=== PATIENT | male | born 1955 | race Caucasian/White ===

== ENCOUNTER 2018-11-15 07:02 | Emergency (ER) | payer MEDICARE, OTHER ==
[~2018-11-15] VITALS: Ht 167.6 cm; Wt 85.3 kg
[~2018-11-15 07:02] MED LIST: BENZ1TAB7 PO; CITA-278 PO; CLON-527 PO; COR3.125T PO; DIVA-81 PO; FURO40TA4 PO; GABA-338 PO; HAL5T PO; HYDR-3965 PO; POTA10TA19 PO; QUET-1 PO; TRAZ50TA54 PO; ZES10T PO
[2018-11-15] MEDS ORDERED: LORazepam 1 MG tablet PO ONE (08:00)
[2018-11-15 08:13] LABS: CLARITY,URINE CLEAR (Clear); COLOR,URINE YELLOW (Yellow); GLUCOSE, URINE NEGATIVE (Neg); KETONES,URINE NEGATIVE (Neg); LEUKOCYTE ESTERASE ,URINE NEGATIVE (Neg); NITRITES, URINE NEGATIVE (Neg); OCCULT BLOOD,URINE NEGATIVE (Neg); PH,URINE 7.5 (4.8-8.0); PROTEIN,URINE NEGATIVE (Neg); UROBILINOGEN,URINE 0.2 E.U/dL (0.2-1.0)
[2018-11-15 08:15] LABS: BASOPHILS % (AUTO) 0.2 % (0-1); EOSINOPHILS # (AUTO) 0.1 X10'3 (0-0.9); EOSINOPHILS % (AUTO) 1.3 % (0-6); HEMATOCRIT 34.8 % (42.0-52.0); HEMOGLOBIN 11.5 g/dl (14.0-17.9); LYMPHOCYTES # (AUTO) 1.5 X10'3 (1.1-4.8); LYMPHOCYTES % (AUTO) 31.6 % (21-51); MEAN CORPUSCULAR HEMOGLOBIN 29.9 PG (27.0-31.0); MEAN CORPUSCULAR HGB CONC 33.1 % (33.0-36.5); MEAN CORPUSCULAR VOLUME 90.4 FL (78-98); MEAN PLATELET VOLUME 8.8 FL (7.4-10.4); MONOCYTES # (AUTO) 0.3 X10'3 (0-0.9); MONOCYTES % (AUTO) 6.9 % (2-12); NEUTROPHILS # (AUTO) 2.8 X10'3 (1.8-7.7); PLATELET COUNT 217 X10'3 (140-440); RED BLOOD COUNT 3.84 X10'6 (4.70-6.10); RED CELL DISTRIBUTION WIDTH 14.9 % (11.5-14.5); WHITE BLOOD COUNT 4.7 X10'3 (4.5-11.0)
[2018-11-15 08:27] LABS: ALANINE AMINOTRANSFERASE 17 U/L (12-78); ALBUMIN 3.7 G/DL (3.4-5.0); ALKALINE PHOSPHATASE 72 IU/L (46-116); ANION GAP 12 (8-16); ASPARTATE AMINO TRANSFERASE 16 U/L (10-37); BILIRUBIN,TOTAL 0.2 MG/DL (0.1-1.0); BLOOD UREA NITROGEN 11 MG/DL (7-18); BUN/CREATININE RATIO 16.4 (5.4-32.0); CALCIUM 9.2 MG/DL (8.5-10.1); CHLORIDE 100 MMOL/L (99-107); CREATININE 0.67 MG/DL (0.60-1.10); ETHANOL < 0.010 GM/DL (0.0-0.010); GLUCOSE 123 MG/DL (70-104); POTASSIUM 3.8 MMOL/L (3.5-5.1); SODIUM 139 MMOL/L (135-145); TOTAL CARBON DIOXIDE 27.2 MMOL/L (24-32); TOTAL PROTEIN 7.3 G/DL (6.4-8.2); eGFR > 90 ML/MIN
[2018-11-15 08:28] LABS: URINE AMPHETAMINE SCREEN NEGATIVE (Neg); URINE BARBITUATE SCREEN NEGATIVE (Neg); URINE BENZODIAZEPINES SCREEN NEGATIVE (Neg); URINE CANNABINOID SCREEN NEGATIVE (Neg); URINE COCAINE SCREEN NEGATIVE (Neg); URINE METHADONE SCREEN NEGATIVE (Neg); URINE OPIATE SCREEN NEGATIVE (Neg); URINE PHENCYCLIDINE SCREEN NEGATIVE (Neg)
[2018-11-15] MEDS ORDERED: LORazepam 0.5 MG tablet PO ONE (08:35)
[2018-11-15] MEDS ORDERED: METO1TAB38 (08:45)
[2018-11-15] MEDS ORDERED: METF500T PO (08:45)
[2018-11-15 08:51] LABS: UA COLLECTION TYPE CLN CATCH MIDSTREAM
--- NOTE | 2018-11-15 12:00 | NUR ---
Patient brought over from Main ER to Bed 23 on 1798 for danger to self. Immediately evaluated by Yanni Tinajero [facility]. Patient seng not meet criteria for 5150 hold. Discharged to [facility] after evaluation with all his personal belongings.
[2018-11-15 17:48] VITALS: BP 143/92
== END 2018-11-15 12:00 | disposition home or self-care (01) ==
LOC: ER 07:03
DX: F31.9 Bipolar disorder, unspecified (principal); I50.9 Heart failure, unspecified; E11.42 Type 2 diabetes mellitus with diabetic polyneuropathy; J44.9 Chronic obstructive pulmonary disease, unspecified; M19.90 Unspecified osteoarthritis, unspecified site; F14.90 Cocaine use, unspecified, uncomplicated; Z59.0 Homelessness; Z56.0 Unemployment, unspecified; Z88.8 Allergy status to other drugs, medicaments and biological substances
CPT/HCPCS: 36415; 80053; 80305; 80320; 81003; 85025; 99284

== ENCOUNTER 2018-11-16 19:42 | Emergency (ER) | payer MEDICARE, OTHER ==
[~2018-11-16] VITALS: Ht 167.6 cm; Wt 85.0 kg
[~2018-11-16 19:42] MED LIST changes: +METF500T PO; +METO1TAB38
--- NOTE | 2018-11-16 20:11 | NUR ---
Pt reports he stated at [facility] last night and "will not go back there. I'm going to go to [place] where they care about people." Pt has weather appropriate clothing. Community resource info to be provided upon D/C
[2018-11-16] MEDS ORDERED: HYDROcodone/acetaminophen 5mg/325mg tablet PO ONE (20:50)
[2018-11-16 21:47] VITALS: BP 148/72
== END 2018-11-16 21:49 | disposition home or self-care (01) ==
LOC: ER 19:43
DX: S46.911A Strain of unspecified muscle, fascia and tendon at shoulder and upper arm level, right arm, initial encounter (principal); I50.9 Heart failure, unspecified; J44.9 Chronic obstructive pulmonary disease, unspecified; M19.90 Unspecified osteoarthritis, unspecified site; F14.90 Cocaine use, unspecified, uncomplicated; E11.42 Type 2 diabetes mellitus with diabetic polyneuropathy; Z56.0 Unemployment, unspecified; Z59.0 Homelessness; Z88.8 Allergy status to other drugs, medicaments and biological substances; Z79.899 Other long term (current) drug therapy; W18.39XA Other fall on same level, initial encounter; Y93.89 Activity, other specified; Y92.89 Other specified places as the place of occurrence of the external cause; Y99.8 Other external cause status
CPT/HCPCS: 73030; 99283

== ENCOUNTER 2020-04-20 03:34 | Emergency (ER) | payer MEDICARE, MEDICAID ==
[~2020-04-20] VITALS: Ht 165.1 cm; Wt 100.0 kg
[~2020-04-20 03:34] MED LIST changes: -CITA-278 PO; +CITA20TA28 PO
[2020-04-20 03:36] VITALS: BP 146/86
[2020-04-20] MEDS ORDERED: ondansetron/PF 4mg/2ml inj IV ONE (03:45)
[2020-04-20] MEDS ORDERED: normal saline 1000ML IV soln IVB ONE (03:45)
--- NOTE | 2020-04-20 03:59 | NUR ---
PT OFF TO CT
[2020-04-20] MEDS ORDERED: METF-438 PO (04:08)
[2020-04-20] MEDS ORDERED: FURO-150 PO (04:08)
[2020-04-20 04:16] LABS: CLARITY,URINE CLEAR (Clear); COLOR,URINE YELLOW (Yellow); GLUCOSE, URINE NEGATIVE (Neg); KETONES,URINE TRACE mg/dl (Neg); LEUKOCYTE ESTERASE ,URINE NEGATIVE (Neg); NITRITES, URINE NEGATIVE (Neg); OCCULT BLOOD,URINE NEGATIVE (Neg); PROTEIN,URINE NEGATIVE (Neg); UROBILINOGEN,URINE 0.2 E.U/dL (0.2-1.0)
[2020-04-20 04:23] LABS: UA COLLECTION TYPE CLN CATCH MIDSTREAM
[2020-04-20 04:24] LABS: BASOPHILS % (AUTO) 0.4 % (0-1); EOSINOPHILS # (AUTO) 0.1 X10'3 (0-0.9); EOSINOPHILS % (AUTO) 2.9 % (0-6); HEMATOCRIT 33.5 % (42.0-52.0); HEMOGLOBIN 11.1 g/dl (14.0-17.9); LYMPHOCYTES # (AUTO) 1.6 X10'3 (1.1-4.8); LYMPHOCYTES % (AUTO) 35.1 % (21-51); MEAN CORPUSCULAR HEMOGLOBIN 29.7 PG (27.0-31.0); MEAN CORPUSCULAR VOLUME 90.2 FL (78-98); MEAN PLATELET VOLUME 8.3 FL (7.4-10.4); MONOCYTES # (AUTO) 0.4 X10'3 (0-0.9); MONOCYTES % (AUTO) 8.7 % (2-12); NEUTROPHILS # (AUTO) 2.4 X10'3 (1.8-7.7); NEUTROPHILS % (AUTO) 52.9 % (42-75); PLATELET COUNT 223 X10'3 (140-440); RED BLOOD COUNT 3.72 X10'6 (4.70-6.10); RED CELL DISTRIBUTION WIDTH 16.3 % (11.5-14.5); WHITE BLOOD COUNT 4.5 X10'3 (4.5-11.0)
[2020-04-20 04:32] LABS: URINE AMPHETAMINE SCREEN NEGATIVE (Neg); URINE BARBITUATE SCREEN NEGATIVE (Neg); URINE BENZODIAZEPINES SCREEN NEGATIVE (Neg); URINE COCAINE SCREEN NEGATIVE (Neg); URINE METHADONE SCREEN NEGATIVE (Neg)
[2020-04-20 04:33] LABS: URINE CANNABINOID SCREEN NEGATIVE (Neg); URINE OPIATE SCREEN NEGATIVE (Neg); URINE PHENCYCLIDINE SCREEN NEGATIVE (Neg)
[2020-04-20 04:34] LABS: ALANINE AMINOTRANSFERASE 18 U/L (12-78); ALBUMIN 3.4 G/DL (3.4-5.0); ALKALINE PHOSPHATASE 80 IU/L (46-116); ANION GAP 10 (8-16); ASPARTATE AMINO TRANSFERASE 13 U/L (10-37); BILIRUBIN,TOTAL 0.1 MG/DL (0.1-1.0); BLOOD UREA NITROGEN 24 MG/DL (7-18); BUN/CREATININE RATIO 22.2 (5.4-32.0); CALCIUM 8.5 MG/DL (8.5-10.1); CHLORIDE 105 MMOL/L (99-107); CREATININE 1.08 MG/DL (0.60-1.10); ETHANOL < 0.010 GM/DL (0.0-0.010); GLUCOSE 151 MG/DL (70-104); LIPASE 76 U/L (73-393); POTASSIUM 4.2 MMOL/L (3.5-5.1); SODIUM 144 MMOL/L (135-145); TOTAL CARBON DIOXIDE 29.1 MMOL/L (24-32); TOTAL PROTEIN 6.7 G/DL (6.4-8.2); eGFR 69 ML/MIN
--- NOTE | 2020-04-20 04:47 | NUR ---
PT REFUSING TO ALLOW MORE BLOOD DRAWS. MD PIZANO
[2020-04-20] MEDS ORDERED: ONDA4TAB6 PO (04:48)
== END 2020-04-20 05:00 | disposition home or self-care (01) ==
LOC: ER 03:34
DX: R10.84 Generalized abdominal pain (principal); R11.2 Nausea with vomiting, unspecified; E11.42 Type 2 diabetes mellitus with diabetic polyneuropathy; I50.9 Heart failure, unspecified; J45.909 Unspecified asthma, uncomplicated; J44.9 Chronic obstructive pulmonary disease, unspecified; M19.90 Unspecified osteoarthritis, unspecified site; F31.9 Bipolar disorder, unspecified; F14.90 Cocaine use, unspecified, uncomplicated; F19.90 Other psychoactive substance use, unspecified, uncomplicated; Z85.9 Personal history of malignant neoplasm, unspecified; Z72.89 Other problems related to lifestyle; Z56.0 Unemployment, unspecified; Z59.0 Homelessness; Z88.8 Allergy status to other drugs, medicaments and biological substances; Z79.899 Other long term (current) drug therapy
CPT/HCPCS: 36415; 74176; 80053; 80305; 80320; 81003; 83690; 85025; 96361; 96374; 99284; J2405; J7030

== ENCOUNTER 2020-05-18 03:52 | Emergency (ER) | payer MEDICARE, OTHER ==
[~2020-05-18] VITALS: Ht 167.6 cm; Wt 110.0 kg
[~2020-05-18 03:52] MED LIST changes: +FURO-150 PO; +METF-438 PO; +ONDA4TAB6 PO
[2020-05-18 03:54] VITALS: BP 177/105
[2020-05-18] MEDS ORDERED: ondansetron 4mg rapidly disintigrating tab PO ONE (04:25)
[2020-05-18] MEDS ORDERED: pantoprazole 40mg Tablet.DR PO ONE (04:25)
[2020-05-18] MEDS ORDERED: famotidine 20mg tablet PO ONE (04:25)
[2020-05-18] MEDS ORDERED: OMEP40CA13 PO (04:34)
[2020-05-18] MEDS ORDERED: ONDA4TAB6 PO (04:34)
[2020-05-18] MEDS ORDERED: BENZ-16 PO (04:34)
[2020-05-18] MEDS ORDERED: METF-950 PO (22:12)
[2020-05-18] MEDS ORDERED: BENA10TA74 PO (22:12)
[2020-05-18] MEDS ORDERED: GABA300C PO (22:12)
[2020-05-18] MEDS ORDERED: QUET300T19 PO (22:12)
[2020-05-18] MEDS ORDERED: OMEP-50 PO (22:12)
== END 2020-05-18 04:52 | disposition home or self-care (01) ==
LOC: ER 03:52
DX: R05 Cough (principal); I50.9 Heart failure, unspecified; J44.9 Chronic obstructive pulmonary disease, unspecified; M19.90 Unspecified osteoarthritis, unspecified site; F14.90 Cocaine use, unspecified, uncomplicated; E11.42 Type 2 diabetes mellitus with diabetic polyneuropathy; Z59.0 Homelessness; Z56.0 Unemployment, unspecified; Z79.899 Other long term (current) drug therapy; Z88.8 Allergy status to other drugs, medicaments and biological substances
CPT/HCPCS: 71045; 99284

== ENCOUNTER 2020-05-18 19:57 | Emergency (ER) | payer MEDICARE, OTHER ==
[~2020-05-18] VITALS: Ht 167.6 cm; Wt 100.0 kg
[~2020-05-18 19:57] MED LIST changes: +BENZ-16 PO; +OMEP40CA13 PO
[2020-05-18 20:30] LABS: BASOPHILS % (AUTO) 0.2 % (0-1); HEMATOCRIT 33.9 % (42.0-52.0); LYMPHOCYTES # (AUTO) 1.1 X10'3 (1.1-4.8); LYMPHOCYTES % (AUTO) 32.5 % (21-51); MEAN CORPUSCULAR HEMOGLOBIN 28.3 PG (27.0-31.0); MEAN CORPUSCULAR HGB CONC 32.4 g/dL (33.0-36.5); MEAN CORPUSCULAR VOLUME 87.4 FL (78-98); MEAN PLATELET VOLUME 7.8 FL (7.4-10.4); MONOCYTES # (AUTO) 0.3 X10'3 (0-0.9); MONOCYTES % (AUTO) 8.2 % (2-12); NEUTROPHILS % (AUTO) 58.1 % (42-75); PLATELET COUNT 244 X10'3 (140-440); RED BLOOD COUNT 3.88 X10'6 (4.70-6.10); RED CELL DISTRIBUTION WIDTH 15.8 % (11.5-14.5); WHITE BLOOD COUNT 3.5 X10'3 (4.5-11.0)
[2020-05-18 20:45] LABS: ANION GAP 8 (8-16); BLOOD UREA NITROGEN 13 MG/DL (7-18); BUN/CREATININE RATIO 15.1 (5.4-32.0); CALCIUM 8.3 MG/DL (8.5-10.1); CHLORIDE 106 MMOL/L (99-107); CREATININE 0.86 MG/DL (0.60-1.10); GLUCOSE 203 MG/DL (70-104); POTASSIUM 3.9 MMOL/L (3.5-5.1); SODIUM 142 MMOL/L (135-145); TOTAL CARBON DIOXIDE 27.9 MMOL/L (24-32); eGFR 90 ML/MIN
[2020-05-18 20:46] LABS: ALANINE AMINOTRANSFERASE 17 U/L (12-78); ALBUMIN 3.4 G/DL (3.4-5.0); ALKALINE PHOSPHATASE 76 IU/L (46-116); ASPARTATE AMINO TRANSFERASE 15 U/L (10-37); BILIRUBIN,TOTAL 0.2 MG/DL (0.1-1.0); ETHANOL < 0.010 GM/DL (0.0-0.010); TOTAL PROTEIN 6.9 G/DL (6.4-8.2)
[2020-05-18 20:48] LABS: ACETAMINOPHEN < 2.0 UG/ML (10-30)
[2020-05-18 21:11] LABS: CLARITY,URINE CLEAR (Clear); COLOR,URINE YELLOW (Yellow); GLUCOSE, URINE NEGATIVE (Neg); KETONES,URINE NEGATIVE (Neg); LEUKOCYTE ESTERASE ,URINE NEGATIVE (Neg); NITRITES, URINE NEGATIVE (Neg); OCCULT BLOOD,URINE NEGATIVE (Neg); PH,URINE 5.5 (4.8-8.0); PROTEIN,URINE NEGATIVE (Neg); UROBILINOGEN,URINE 0.2 E.U/dL (0.2-1.0)
--- NOTE | 2020-05-18 21:21 | NUR ---
pt moved to overflow bed 26
[2020-05-18 21:22] LABS: UA COLLECTION TYPE CLN CATCH MIDSTREAM
[2020-05-18 21:25] LABS: URINE AMPHETAMINE SCREEN NEGATIVE (Neg); URINE BARBITUATE SCREEN NEGATIVE (Neg); URINE BENZODIAZEPINES SCREEN NEGATIVE (Neg); URINE CANNABINOID SCREEN NEGATIVE (Neg); URINE COCAINE SCREEN NEGATIVE (Neg); URINE METHADONE SCREEN NEGATIVE (Neg); URINE OPIATE SCREEN NEGATIVE (Neg); URINE PHENCYCLIDINE SCREEN NEGATIVE (Neg)
[2020-05-18] MEDS ORDERED: GABA300C PO (22:12)
[2020-05-18] MEDS ORDERED: METF-950 PO (22:12)
[2020-05-18] MEDS ORDERED: QUET300T19 PO (22:12)
[2020-05-18] MEDS ORDERED: BENA10TA74 PO (22:12)
[2020-05-18] MEDS ORDERED: OMEP-50 PO (22:12)
[2020-05-18] MEDS ORDERED: gabapentin 300mg capsule PO ONE (23:25)
[2020-05-18] MEDS ORDERED: gabapentin 400mg capsule PO SCH (23:25)
[2020-05-18] MEDS ORDERED: quetiapine 100mg tablet PO SCH (23:25)
[2020-05-18] MEDS ORDERED: benztropine 1mg tablet PO SCH (23:25)
[2020-05-18] MEDS ORDERED: clonazePAM 1mg tablet PO ONE (23:25)
[2020-05-18] MEDS ORDERED: haloperidol 5mg tablet PO ONE (23:25)
[2020-05-18] MEDS ORDERED: traZODone 150mg tablet PO ONE (23:25)
[2020-05-18] MEDS ORDERED: acetaminophen 325mg tablet PO ONE (23:35)
--- NOTE | 2020-05-19 03:01 | NUR ---
pt's chart/[id number] faxed to [facility]
[2020-05-19 06:22] VITALS: BP 128/69
--- NOTE | 2020-05-19 06:30 | NUR ---
pt is sleeping
[2020-05-19] MEDS ORDERED: pantoprazole 40mg Tablet.DR PO SCH (07:30)
--- NOTE | 2020-05-19 07:30 | NUR ---
pt is sleeping
[2020-05-19] MEDS: gabapentin 300mg capsule PO SCH ×2 (07:45→13:37)
[2020-05-19] MEDS: benztropine 1mg tablet PO SCH ×2 (07:45→13:37)
[2020-05-19] MEDS ORDERED: quetiapine 100mg tablet PO SCH (08:00)
[2020-05-19] MEDS ORDERED: lisinopril 10 MG tablet PO SCH (08:00)
[2020-05-19] MEDS ORDERED: clonazePAM 1mg tablet PO SCH (08:00)
[2020-05-19] MEDS ORDERED: furosemide 40mg tablet PO SCH (08:00)
[2020-05-19] MEDS ORDERED: potassium chloride 10mEq ER tablet PO SCH (08:00)
[2020-05-19] MEDS ORDERED: citalopram 20mg tablet PO SCH (08:00)
[2020-05-19] MEDS ORDERED: metFORMIN 500mg tablet PO SCH (08:00)
[2020-05-19] MEDS ORDERED: carVEDilol 3.125mg tablet PO SCH (08:00)
--- NOTE | 2020-05-19 08:30 | NUR ---
pt is sleeping
--- NOTE | 2020-05-19 09:30 | NUR ---
pt is sleeping
--- NOTE | 2020-05-19 10:32 | NUR ---
pt is sleeping
--- NOTE | 2020-05-19 10:47 | NUR ---
assumed care while RN is on 15 min break period
--- NOTE | 2020-05-19 11:34 | NUR ---
pt is laying in his bed no issues at this time
[2020-05-19] MEDS ORDERED: haloperidol 5mg tablet PO SCH (21:00)
[2020-05-19] MEDS ORDERED: traZODone 50mg tablet PO SCH (21:00)
== END 2020-05-19 16:17 | disposition home or self-care (01) ==
LOC: ER 19:57
DX: F31.9 Bipolar disorder, unspecified (principal); R45.851 Suicidal ideations; E11.42 Type 2 diabetes mellitus with diabetic polyneuropathy; I50.9 Heart failure, unspecified; J44.9 Chronic obstructive pulmonary disease, unspecified; M19.90 Unspecified osteoarthritis, unspecified site; F14.90 Cocaine use, unspecified, uncomplicated; Z59.0 Homelessness; Z56.0 Unemployment, unspecified; Z98.890 Other specified postprocedural states; Z88.8 Allergy status to other drugs, medicaments and biological substances; Z79.899 Other long term (current) drug therapy
CPT/HCPCS: 36415; 80053; 80305; 80320; 80329; 81003; 82948; 84443; 85025; 94760; 99285

== ENCOUNTER 2020-05-19 14:26 | Inpatient (IN) | payer MEDICARE, OTHER ==
[~2020-05-19] VITALS: Ht 167.6 cm; Wt 96.8 kg
[~2020-05-19 14:26] MED LIST changes: +BENA10TA74 PO; -BENZ-16 PO; -DIVA-81 PO; -FURO-150 PO; -GABA-338 PO; +GABA300C PO; -HYDR-3965 PO; -METF-438 PO; +METF-950 PO; -METF500T PO; -METO1TAB38; +OMEP-50 PO; -OMEP40CA13 PO; -ONDA4TAB6 PO; -QUET-1 PO; +QUET300T19 PO; -ZES10T PO
[2020-05-19] MEDS ORDERED: acetaminophen 325mg tablet PO PRN ×2 (16:40)
[2020-05-19] MEDS ORDERED: loperamide 2mg capsule PO PRN (16:40)
[2020-05-19] MEDS ORDERED: magnesium hydroxide 30ml (MOM) UD suspension PO PRN (16:40)
[2020-05-19] MEDS ORDERED: mag hydrox/Alum hydrox/simeth 30ml oral suspension PO PRN (16:40)
[2020-05-19 16:45] VITALS: BP 113/68
--- NOTE | 2020-05-19 18:11 | NUR ---
Pt admitted to bed 323A at 1620, ambulated onto unit from ER overflow accompanied by security and PCT. Safety and skin check done, pt showered. Pt called [employer] on 05/18/20 to report that he was having CAH to kill himself and had been walking into traffic trying to get hit. Pt has a Dx of Bipolar Disorder. He is hyperverbal and hyperreligious, his speech is pressured. Pt states he is depressed and suicidal though contracts for safety while in the hospital. Pt endorsing CAH to kill himself, voices also say not to trust the doctors and nurses. Pt states he has VH, demons. 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 Pt has somewhat impaired balance. Pt has a Hx of meth and ETOH use, Utox was negative. Pt has a Hx of asthma and COPD, he has wheezes in all lobes, pt states he smokes over a pack a day, declines nicotine patch. Pt also has a Hx of HTN, peripheral neuropathy, CHF,arthritis, and DM II which is controlled by PO Metformin and diet.
[2020-05-19 20:00] VITALS: BP 113/56
[2020-05-19] MEDS: carVEDilol 3.125mg tablet PO SCH (20:33)
[2020-05-19] MEDS: quetiapine 100mg tablet PO SCH (20:33)
[2020-05-19] MEDS: clonazePAM 1mg tablet PO SCH (20:33)
[2020-05-19] MEDS: benztropine 1mg tablet PO SCH (20:33)
[2020-05-19] MEDS: gabapentin 300mg capsule PO SCH (20:33)
[2020-05-19] MEDS ORDERED: haloperidol 5mg tablet PO SCH (21:00)
[2020-05-19] MEDS ORDERED: traZODone 50mg tablet PO SCH (21:00)
--- NOTE | 2020-05-20 02:10 | NUR ---
Nursing Progress Note: Raul Legal hold: 5150 Client on involuntary status for GD/DTS. Report received from JOVANNY Reyes with use of SBAR. Why are they here: Pt was transferred from ER over flow. He called [employer] on 05/18/20 to report that he was having CAH to kill himself, and had been walking into traffic trying to get hit. He was placed on 5150 for DTS. Pt also endorses voices that tell him to not trust the doctors or the nurses, also admits to dodie PACHECO. Pt states that he is depressed and suicidal. Pt has history of bipolar disorder, asthma, COPD, HTN, peripheral neuropathy, CHF, arthritis, DM II, and bilateral cataracts. Reports being half blind in his left eye. Pt has history of meth and ETOH, utox, was negative. Assessment What has happened this shift: Pt was observed ambulating the isles during shift change with a bible in his hand. He was perseverating on snack and asked a couple of times when this was going to be. He was cooperative during 1:1 physical assessment and for the rest of his admission process. He took all of his HS meds without any issues. He remains pleasant for the most part but easily irritable. When asked about S/I, he states "not here, but wish I was . He states that his plan before coming here was to telephone lineworker the middle of a train track and just wait for the train to run him over. Pt states that he feels depressed and talks about how it all got worst when his son over a drug over dose. He feels guilty because he feels he was the one who introduced him to drugs. Pt states that he also feels like its hard for him to form relationships with people, even his son, and this makes him feel very depressed and hopeless. He admits to being on drugs since he was a young kid. "I started doing all types of drugs, meth, crack, acid, marijuana heavely, cocaine, and that's been my lifestyle." He feels pretty hopeless because he believes he has no one to turn to. He states that he tried to commit suicide a couple of times by jumping into traffic. Pt contracts to safety while in the unit. He retired to sleep after he received his snack and his HS medications. 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 Were meds taken: Med compliant, took all his HS meds Any med S/E: none noted or observed Mental Status Exam Appearance: Appropriate, wearing green unit scrubs, appears well groomed Eye contact: Good, direct Behavior: Pleasant, cooperative, perseverating on food, hyperreligious Speech: Hyperverbal, pressured Mood: Depressed, hopeless, somewhat irritable Affect: Blunted with intermittent brightening Thought process: Circumstantial Thought Content: Snacks, the of his son, hindu, his current situation Cognition: Alert and oriented X3, off by time Insight: Poor Judgment: Poor Interventions PRN's used: None Therapeutic interventions: 1:1 assessment, encouragement to express thoughts and feelings, active listening, monitoring of behaviors with intervention; limit setting and redirection as needed, maintained Q 15 minute safety checks, monitor medication therapeutic and side effects. Restraints/seclusion/emergency medication: N/A Justification of Continued Inpatient Treatment: Pt needs stabilization, she continues to require a safe and supportive environment with medication adjustments and monitoring to decrease risk of rehospitalization.
[2020-05-20 08:00] VITALS: BP 120/76
[2020-05-20] MEDS: furosemide 40mg tablet PO SCH (08:00)
[2020-05-20] MEDS: clonazePAM 1mg tablet PO SCH (08:00)
[2020-05-20] MEDS: pantoprazole 40mg Tablet.DR PO SCH (08:15)
[2020-05-20] MEDS: carVEDilol 3.125mg tablet PO SCH ×2 (08:15→20:47)
[2020-05-20] MEDS: citalopram 20mg tablet PO SCH (08:15)
[2020-05-20] MEDS: gabapentin 300mg capsule PO SCH ×3 (08:15→20:47)
[2020-05-20] MEDS: benztropine 1mg tablet PO SCH ×3 (08:15→20:46)
[2020-05-20] MEDS: potassium chloride 10mEq ER tablet PO SCH (08:15)
[2020-05-20] MEDS: quetiapine 100mg tablet PO SCH ×2 (08:16→20:47)
[2020-05-20] MEDS: lisinopril 10 MG tablet PO SCH (08:16)
[2020-05-20 08:50] LABS: HEMOGLOBIN A1C 7.6 % (4.5-6.2)
[2020-05-20 08:51] LABS: CHOL/HDL RATIO 2.4 (0.00-4.99); CHOLESTEROL 143 MG/DL (0-200); HDL CHOLESTEROL 60 MG/DL (35-60); LDL CHOLESTEROL 74 MG/DL (50-100); TRIGLYCERIDES 49 MG/DL (20-135)
--- NOTE | 2020-05-20 12:31 | NUR ---
DM consult: Pt with T2DM, current A1c is 7.6%, controlled by Metformin and diet per RN notes. Pt admit with psychosis, currently documented as resistive to care, restless, impulsive, and agitated. Written DM education materials faxed to [facility] to be placed in patient chart for discharge. Will remain available. Addendum: 05/20/20 at [address] Amended: Links added.
[2020-05-20] MEDS ORDERED: clonazePAM 0.5mg tablet PO PRN (16:20)
--- NOTE | 2020-05-20 17:32 | NUR ---
Nursing Progress Note: Legal hold: 5150 Client on involuntary status for GD/DTS. Report received from RN with use of SBAR. Why are they here: Pt was transferred from ER over flow. He called [employer] on 05/18/20 to report that he was having CAH to kill himself, and had been walking into traffic trying to get hit. He was placed on 5150 for DTS. Pt also endorses voices that tell him to not trust the doctors or the nurses, also admits to dodie PACHECO. Pt states that he is depressed and suicidal. Pt has history of bipolar disorder, asthma, COPD, HTN, peripheral neuropathy, CHF, arthritis, DM II, and bilateral cataracts. Reports being half blind in his left eye. Pt has history of meth and ETOH, utox, was negative. Assessment What has happened this shift: Received Pt in bed sleeping w/o distress at beginning of shift. Pt awoke and was cooperative with vitals. Pt ate breakfast and all meals in community room and isolated mostly. Pt very vocal about medication needs and wanting to make phone calls about housing to [facility] or [facility] in [place]. Pt demanding and perseverating on getting needs met when he wants and limits were set with resistance. Pt discussed each med with nurse during AM medication pass and refused lasix and Klonopin. Pt very concerned about being on meds that make his drowsy, as he cant be like that when on the streets homeless. Pt calmed throughout the day as he was able to see Dr Schwartz, [facility] and Kelly CARR. He showered in the afternoon. Pt alternates between speaking very gratefully and being highly critical with staff. Pt appears future oriented and motivated to make plans for his survival post discharge. 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 Were meds taken: Med compliant, took all his HS meds Any med S/E: none noted or observed Mental Status Exam Appearance: Casual in green scrubs Eye contact: Good Behavior: Pleasant, cooperative, perseverating on phone calls and meds Speech: Hyperverbal, pressured Mood: Depressed, hopeless, irritable Affect: Blunted with intermittent brightening Thought process: Circumstantial Thought Content: Getting housing and medications figured out Cognition: Alert and oriented X4 Insight: Poor Judgment: Poor Interventions PRN's used: None Therapeutic interventions: 1:1 assessment, encouragement to express thoughts and feelings, active listening, monitoring of behaviors with intervention; limit setting and redirection as needed, maintained Q 15 minute safety checks, monitor medication therapeutic and side effects. Restraints/seclusion/emergency medication: N/A Justification of Continued Inpatient Treatment: Pt needs stabilization, she continues to require a safe and supportive environment with medication adjustments and monitoring to decrease risk of rehospitalization.
[2020-05-20 20:00] VITALS: BP 137/76
[2020-05-20] MEDS: haloperidol 5mg tablet PO SCH (20:47)
[2020-05-20] MEDS: divalproex sod 250mg ER (24-hour) tablet PO SCH (20:47)
[2020-05-20] MEDS ORDERED: benzocaine (Anbesol) 12ml bottle MM PRN (21:15)
[2020-05-20] MEDS ORDERED: ibuprofen tablet 400 MG TABLET PO PRN (21:15)
[2020-05-20] MEDS ORDERED: ondansetron 4mg rapidly disintigrating tab PO PRN (21:25)
[2020-05-20] MEDS: benzonatate 100mg capsule PO PRN (23:01)
--- NOTE | 2020-05-21 00:25 | NUR ---
Nursing Progress Note: Raul Legal hold: 5150 Client on involuntary status for GD/DTS. Report received from JOVANNY Reyes with use of SBAR. Why are they here: Pt was transferred from ER over flow. He called [employer] on 05/18/20 to report that he was having CAH to kill himself, and had been walking into traffic trying to get hit. He was placed on 5150 for DTS. Pt also endorses voices that tell him to not trust the doctors or the nurses, also admits to dodie PACHECO. Pt states that he is depressed and suicidal. Pt has history of bipolar disorder, asthma, COPD, HTN, peripheral neuropathy, CHF, arthritis, DM II, and bilateral cataracts. Reports being half blind in his left eye. Pt has history of meth and ETOH, utox, was negative. Assessment What has happened this shift: Pt was out in the unit asking for his property sheet. He was becoming angry because some of his needs were not being met right away. Pt got agitated over some medications that supposedly he brought in with him and refused to take his medications if he didnt have those medications first. Eventually his medications were straighten out. He seemed to believe that there was some medication for his mouth, but clarified with him that there was none with the medications he had brought in. Pt later on apologized for getting agitated and agreed to take his meds. He states "I just feel like I can't trust the doctors or nurses, they lied to me about my medications when I went to the ER and I just want to hurt that doctor that was down there." He is still pretty hyper caodaism and talks about how the only relationship he has is with God. Pt later on requested something for cough and he was also complaining of a upset stomach. Benzonatate and Zofran were administered with effectiveness. He retired to bed after he received his meds although he was up throughout the night asking for different things. 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 Were meds taken: Med compliant, took all his HS meds Any med S/E: none noted or observed Mental Status Exam Appearance: Appropriate, wearing green unit scrubs, appears well groomed Eye contact: Good, direct Behavior: Becomes easily agitated if his needs are not met, irritable, and somewhat paranoid, accusatory, he is grateful and cooperative and pleasant once all his needs are met Speech: Hyperverbal, pressured Mood: Depressed, hopeless, somewhat irritable Affect: Blunted Thought process: Circumstantial Thought Content: Snacks, perseverating on medications he brought with him Cognition: Alert and oriented X3, off by time Insight: Poor Judgment: Poor Interventions PRN's used: Zofran, Benzonatate Therapeutic interventions: 1:1 assessment, encouragement to express thoughts and feelings, active listening, monitoring of behaviors with intervention; limit setting and redirection as needed, maintained Q 15 minute safety checks, monitor medication therapeutic and side effects. Restraints/seclusion/emergency medication: N/A Justification of Continued Inpatient Treatment: Pt needs stabilization, she continues to require a safe and supportive environment with medication adjustments and monitoring to decrease risk of rehospitalization.
[2020-05-21] MEDS ORDERED: ibuprofen 200mg tablet PO PRN (00:55)
[2020-05-21] MEDS: metFORMIN 500mg tablet PO SCH ×2 (07:00→17:29)
[2020-05-21 07:46] VITALS: BP 131/82
[2020-05-21 07:49] VITALS: BP 131/82
[2020-05-21] MEDS: citalopram 20mg tablet PO SCH (08:19)
[2020-05-21] MEDS: carVEDilol 3.125mg tablet PO SCH ×2 (08:19→20:34)
[2020-05-21] MEDS: benztropine 1mg tablet PO SCH ×3 (08:19→20:35)
[2020-05-21] MEDS: potassium chloride 10mEq ER tablet PO SCH (08:21)
[2020-05-21] MEDS: quetiapine 100mg tablet PO SCH ×2 (08:25→20:35)
[2020-05-21] MEDS: pantoprazole 40mg Tablet.DR PO SCH (08:26)
[2020-05-21] MEDS: aspirin 81mg tab.chew PO SCH (08:26)
[2020-05-21] MEDS: gabapentin 300mg capsule PO SCH ×3 (08:26→20:35)
[2020-05-21] MEDS: lisinopril 10 MG tablet PO SCH (08:26)
[2020-05-21] MEDS: furosemide 40mg tablet PO SCH (08:27)
[2020-05-21] MEDS: haloperidol 5mg tablet PO SCH ×2 (08:27→20:34)
--- NOTE | 2020-05-21 17:20 | NUR ---
Nursing Progress Note: Legal hold: 5150 Expires 05/22 @ 1620 Client on involuntary status for GD/DTS. Report received BRENDEN Arias with use of SBAR. Why are they here: Pt was transferred from ER over flow. He called [employer] on 05/18/20 to report that he was having CAH to kill himself, and had been walking into traffic trying to get hit. He was placed on 5150 for DTS. Pt also endorses voices that tell him to not trust the doctors or the nurses, also admits to dodie PACHECO. Pt states that he is depressed and suicidal. Pt has history of bipolar disorder, asthma, COPD, HTN, peripheral neuropathy, CHF, arthritis, DM II, and bilateral cataracts. Reports being half blind in his left eye. Pt has history of meth and ETOH, utox, was negative. Assessment What has happened this shift: Received patient up in [place] at shift change, pt. requests cup of coffee. Patient ate breakfast and all meals in group room. 1:1 completed at bedside, pt. was cooperative. Compliant with medications, except pt. refused Glucophage. "I am not diabetic, the doctor in [place] said I wasn't." Educated patient that his A1C was 7.6, pt. verbalized understanding and apologized. This typewriter tester sat and talked with patient for at least 20 minutes. Pt. apologized for getting so agitated states "I have been on the streets so long, that is what I do to survive." "People are always trying to steal from you." Pt. states he has been institutionalized since I was 8. Pt.does not want to be homeless "I am to old to be out there." Pt. states "I need to respond not react." Pt. voice concern regarding any medication that makes him sleepy. Pt. requested a notebook from his backpack. Pt. sits in his room and reads his Bible, up walking in halls carrying Bible. No outbursts noted this shift. Denies all MH symptoms. GFR 90, K+ 3.9 both drawn on 05/18 S/I, H/I: Denies both. A/VH: Denies both. Sleep: 6.75 per Sleep Assessment. Took 2 naps this shift. ADL's: Independent Group attendance: No group on Friday. Were meds taken: All medications except for 0700 Glucophage Any med S/E: None observed or reported. Mental Status Exam Appearance: Neat, clean, unshaven, wearing green unit scrubs. Eye contact: Good Behavior: Sits in room reading his Bible, walks halls with Bible. Cooperative, calm. Speech: Clear, rapid speech at times. Mood: Slightly depressed Affect: Blunted with intermittent brightening Thought process: Circumstantial Thought Content: Getting housing Cognition: A&Ox4 Insight: Fair Judgment: Fair Interventions PRN's used: None Therapeutic interventions: 1:1 assessment, encouragement to express thoughts and feelings, active listening, monitoring of behaviors with intervention; limit setting and redirection as needed, maintained Q 15 minute safety checks, monitor medication therapeutic and side effects. Restraints/seclusion/emergency medication: N/A Justification of Continued Inpatient Treatment: Pt needs stabilization, she continues to require a safe and supportive environment with medication adjustments and monitoring to decrease risk of rehospitalization.
[2020-05-21 20:00] VITALS: BP 120/76
[2020-05-21] MEDS: divalproex sod 250mg ER (24-hour) tablet PO SCH (20:34)
--- NOTE | 2020-05-22 01:11 | NUR ---
Nursing Progress Note: Legal hold: 5150 Client on involuntary status for GD/DTS. Report received from JOVANNY Reyes with use of SBAR. Why are they here: Pt was transferred from ER over flow. He called [employer] on 05/18/20 to report that he was having CAH to kill himself, and had been walking into traffic trying to get hit. He was placed on 5150 for DTS. Pt also endorses voices that tell him to not trust the doctors or the nurses, also admits to dodie PACHECO. Pt states that he is depressed and suicidal. Pt has history of bipolar disorder, asthma, COPD, HTN, peripheral neuropathy, CHF, arthritis, DM II, and bilateral cataracts. Reports being half blind in his left eye. Pt has history of meth and ETOH, utox, was negative. Assessment What has happened this shift: The patient was ambulating in the hallway at shift change. He's easily located due to his all white hair and Bible in hand. When talking to him about his life, he responded, "I just need to get out of here." Next, he states that he knows he needs to be here to get his medications straightened out. The patient states that he needs assistance with housing. He was told that his workers compensation claims assistant was probably looking for a safe discharge place for him. "God opens doors, he's the only One." The patient is easy to anger, but needs a couple minutes to settle down, then apologizes for "being a grumpy old man." Before and during HS med pass, he was perseverating about his Depakote, which he believed was more than once a day. He was also upset about his home meds, "bunch of [place] won't let me take my own meds." An explanation led to an apology. He took all HS meds, stayed up for a while reading his Bible, then went to bed. S/I, H/I: Endorses S/I A/VH: Denies. 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 Speech: Hyperverbal, pressured Mood: Depressed. Affect: Blunted Thought process: Circumstantial Thought Content: Medications and housing Cognition: Alert and oriented X3, off by time Insight: Poor Judgment: Poor Interventions PRN's used: Therapeutic interventions: 1:1 assessment, encouragement to express thoughts and feelings, active listening, monitoring of behaviors with intervention; limit setting and redirection as needed, maintained Q 15 minute safety checks, monitor medication therapeutic and side effects. Restraints/seclusion/emergency medication: N/A Justification of Continued Inpatient Treatment: Pt needs stabilization, she continues to require a safe and supportive environment with medication adjustments and monitoring to decrease risk of rehospitalization.
[2020-05-22] MEDS: metFORMIN 500mg tablet PO SCH (07:25)
[2020-05-22] MEDS: benzonatate 100mg capsule PO PRN (07:37)
[2020-05-22 08:00] VITALS: BP 128/79
[2020-05-22] MEDS: potassium chloride 10mEq ER tablet PO SCH (08:09)
[2020-05-22] MEDS: quetiapine 100mg tablet PO SCH (08:09)
[2020-05-22] MEDS: gabapentin 300mg capsule PO SCH ×2 (08:09→13:02)
[2020-05-22] MEDS: carVEDilol 3.125mg tablet PO SCH (08:10)
[2020-05-22] MEDS: citalopram 20mg tablet PO SCH (08:10)
[2020-05-22] MEDS: pantoprazole 40mg Tablet.DR PO SCH (08:10)
[2020-05-22] MEDS: haloperidol 5mg tablet PO SCH (08:10)
[2020-05-22] MEDS: aspirin 81mg tab.chew PO SCH (08:10)
[2020-05-22] MEDS: furosemide 40mg tablet PO SCH (08:10)
[2020-05-22 08:11] VITALS: BP_SYST 128
[2020-05-22] MEDS: lisinopril 10 MG tablet PO SCH (08:11)
[2020-05-22] MEDS: benztropine 1mg tablet PO SCH ×2 (08:11→13:02)
--- NOTE | 2020-05-22 10:00 | NUR ---
Group Therapy: Process Group This Clinicians goals for this process group were as follows: (1) Ask scaling questions about Patients current anxiety, depression, and irritability symptoms as a check-in. (2) Share psychoeducation about self-efficacy, and ego strength. (3) Provide psychoeducation on eSnips Drama triangleVictim, Persecutor, Rescuer dynamic. (4) Share psychoeducation on developing positive ego strengthpositive affirmations, positive self-talk, transitioning from a victim of circumstances to a survivor of circumstances. (5) Process Clients thoughts and reflections on this topic within the group milieu. Patient identified experiencing the following levels of anxiety, depression, and anger/irritability while present in the group milieu. Anxiety: 0/10 Depression: 0/10 Anger/irritability: 0/10 Patient presented as open and cooperative within the group milieu. Patient wore green hospital scrubs within the milieu. Patient's thought content was clear and concrete. Patient's thought process was clear, coherent, and linear. Patient's thought content was marked by christianity preoccupation--of turning to God for support so that he could grow and change for the better in his life. On this note, Patient initially expressed that he was not sure what he thought about this Clinician's psychoeducation about working to go from a place of low ego strength to high ego strength, as he equated this with being conceited, or cocky. This Clinician reassured him that having high ego strength, and positive self-esteem could be strived for while still embracing the virtue of humility. Patient presented as verbally engaged and nonobtrusive within the process group. Patient quietly got up and left the room on several occasions. He left, finally, around 40 minutes into the process group and did not return. Johnny Teixeira MA, SANITATION WORKER [employer]ACH[employer]ERY Addendum: 05/22/20 at 1127 by Johnny Teixeira Amended: Links added.
[2020-05-22] MEDS ORDERED: HALO5TAB PO (12:13)
[2020-05-22] MEDS ORDERED: CITA-124 PO (12:13)
[2020-05-22] MEDS ORDERED: COR3.125T PO (12:13)
[2020-05-22] MEDS ORDERED: PANT40TA4 PO (12:13)
[2020-05-22] MEDS ORDERED: POTA10TA19 PO (12:13)
[2020-05-22] MEDS ORDERED: FURO40TA4 PO (12:13)
[2020-05-22] MEDS ORDERED: DIVA500T9 PO (12:13)
[2020-05-22] MEDS ORDERED: ASPI-1265 PO (12:13)
[2020-05-22] MEDS ORDERED: GABA300C PO (12:13)
[2020-05-22] MEDS ORDERED: BENZ1TAB7 PO (12:13)
[2020-05-22] MEDS ORDERED: LISI10TA4 PO (12:13)
[2020-05-22] MEDS ORDERED: METF-950 PO (12:13)
[2020-05-22] MEDS ORDERED: QUET300T19 PO (12:13)
--- NOTE | 2020-05-22 13:48 | NUR ---
DISCHARGE NOTE: Patient discharged from [facility] at 1340. [facility] by this life insurance underwriter. Reviewed discharge instructions with patient. Patient provided with resources and will follow up with [facility] tomorrow at 0900, pt. verbalized understanding. Pt. is being discharged to [facility] and given 2 bus tickets for transportation. Personal belongings were returned with patient. Pt. is A&O x4, appreciative to staff for the treatment has received here.
[2020-05-23] MEDS ORDERED: OMEP40CA13 PO (20:33)
[2020-05-23] MEDS ORDERED: ONDA4TAB6 PO (20:33)
== END 2020-05-22 13:40 | disposition short-term general hospital (02) | DRG 885 ==
LOC: ADULT MH 16:32
PROVIDERS: ADMIT Psychiatry & Neurology Psychiatry; ATTEND Psychiatry & Neurology Psychiatry
DX: F25.0 Schizoaffective disorder, bipolar type (principal); R45.851 Suicidal ideations; I50.9 Heart failure, unspecified; I11.0 Hypertensive heart disease with heart failure; J44.9 Chronic obstructive pulmonary disease, unspecified; K21.9 Gastro-esophageal reflux disease without esophagitis; Z59.0 Homelessness; Z79.899 Other long term (current) drug therapy; F43.12 Post-traumatic stress disorder, chronic; E11.9 Type 2 diabetes mellitus without complications
CPT/HCPCS: 36415; 80053; 80061; 80305; 80320; 80329; 81003; 82948; 83036; 84443; 85025; 87081; 94760

== ENCOUNTER 2020-05-22 17:18 | Emergency (ER) | payer MEDICARE, OTHER ==
[~2020-05-22] VITALS: Ht 167.6 cm; Wt 95.5 kg
[~2020-05-22 17:18] MED LIST changes: +ASPI-1265 PO; +CITA-124 PO; +DIVA500T9 PO; +HALO5TAB PO; +LISI10TA4 PO; +PANT40TA4 PO
[2020-05-22 17:24] VITALS: BP 95/62
[2020-05-23] MEDS ORDERED: ONDA4TAB6 PO (20:33)
[2020-05-23] MEDS ORDERED: OMEP40CA13 PO (20:33)
== END 2020-05-22 18:06 | disposition left against medical advice (07) ==
LOC: ER 17:19
DX: R10.9 Unspecified abdominal pain (principal); R11.2 Nausea with vomiting, unspecified; E11.42 Type 2 diabetes mellitus with diabetic polyneuropathy; I50.9 Heart failure, unspecified; J44.9 Chronic obstructive pulmonary disease, unspecified; M19.90 Unspecified osteoarthritis, unspecified site; F41.9 Anxiety disorder, unspecified; F11.90 Opioid use, unspecified, uncomplicated; Z59.0 Homelessness; Z56.0 Unemployment, unspecified; Z72.89 Other problems related to lifestyle; Z98.890 Other specified postprocedural states; Z88.8 Allergy status to other drugs, medicaments and biological substances; Z79.899 Other long term (current) drug therapy
CPT/HCPCS: 99283

== ENCOUNTER 2020-05-22 22:52 | Emergency (ER) | payer MEDICARE, OTHER ==
[~2020-05-22] VITALS: Ht 167.6 cm; Wt 98.1 kg
[2020-05-22 23:29] LABS: BASOPHILS % (AUTO) 0.5 % (0-1); EOSINOPHILS # (AUTO) 0.1 X10'3 (0-0.9); EOSINOPHILS % (AUTO) 1.9 % (0-6); HEMATOCRIT 34.3 % (42.0-52.0); HEMOGLOBIN 11.2 g/dl (14.0-17.9); LYMPHOCYTES # (AUTO) 1.5 X10'3 (1.1-4.8); LYMPHOCYTES % (AUTO) 34.5 % (21-51); MEAN CORPUSCULAR HEMOGLOBIN 28.4 PG (27.0-31.0); MEAN CORPUSCULAR HGB CONC 32.7 g/dL (33.0-36.5); MEAN CORPUSCULAR VOLUME 86.8 FL (78-98); MEAN PLATELET VOLUME 8.3 FL (7.4-10.4); MONOCYTES # (AUTO) 0.4 X10'3 (0-0.9); MONOCYTES % (AUTO) 8.3 % (2-12); NEUTROPHILS # (AUTO) 2.4 X10'3 (1.8-7.7); NEUTROPHILS % (AUTO) 54.8 % (42-75); PLATELET COUNT 271 X10'3 (140-440); RED BLOOD COUNT 3.95 X10'6 (4.70-6.10); RED CELL DISTRIBUTION WIDTH 15.5 % (11.5-14.5); WHITE BLOOD COUNT 4.4 X10'3 (4.5-11.0)
[2020-05-22 23:37] LABS: ALANINE AMINOTRANSFERASE 16 U/L (12-78); ALBUMIN 3.5 G/DL (3.4-5.0); ALBUMIN/GLOBULIN RATIO 0.9 (1.1-1.5); ALKALINE PHOSPHATASE 78 IU/L (46-116); ANION GAP 10 (8-16); ASPARTATE AMINO TRANSFERASE 10 U/L (10-37); BILIRUBIN,TOTAL 0.2 MG/DL (0.1-1.0); BLOOD UREA NITROGEN 32 MG/DL (7-18); BUN/CREATININE RATIO 20.8 (5.4-32.0); CALCIUM 8.7 MG/DL (8.5-10.1); CHLORIDE 102 MMOL/L (99-107); CREATININE 1.54 MG/DL (0.60-1.10); GLUCOSE 159 MG/DL (70-104); LIPASE 102 U/L (73-393); POTASSIUM 4.2 MMOL/L (3.5-5.1); SODIUM 139 MMOL/L (135-145); TOTAL CARBON DIOXIDE 27.1 MMOL/L (24-32); TOTAL PROTEIN 7.3 G/DL (6.4-8.2); eGFR 46 ML/MIN
[2020-05-22] MEDS ORDERED: normal saline 1000ML IV soln IVB ONE (23:50)
[2020-05-23 00:15] LABS: CLARITY,URINE CLEAR (Clear); COLOR,URINE YELLOW (Yellow); GLUCOSE, URINE NEGATIVE (Neg); KETONES,URINE TRACE mg/dl (Neg); LEUKOCYTE ESTERASE ,URINE NEGATIVE (Neg); NITRITES, URINE NEGATIVE (Neg); OCCULT BLOOD,URINE NEGATIVE (Neg); PROTEIN,URINE NEGATIVE (Neg); UROBILINOGEN,URINE 0.2 E.U/dL (0.2-1.0)
[2020-05-23 00:16] LABS: UA COLLECTION TYPE CLN CATCH MIDSTREAM
[2020-05-23 01:16] VITALS: BP 158/94
[2020-05-23] MEDS ORDERED: OMEP40CA13 PO (20:33)
[2020-05-23] MEDS ORDERED: ONDA4TAB6 PO (20:33)
[2020-05-24] MEDS ORDERED: DIVA-76 PO (23:58)
[2020-05-24] MEDS ORDERED: QUET300T2 PO (23:58)
== END 2020-05-23 01:29 | disposition home or self-care (01) ==
LOC: ER 22:52
DX: N17.9 Acute kidney failure, unspecified (principal); R11.10 Vomiting, unspecified; R10.84 Generalized abdominal pain; J44.9 Chronic obstructive pulmonary disease, unspecified; E11.9 Type 2 diabetes mellitus without complications; I50.9 Heart failure, unspecified; F14.90 Cocaine use, unspecified, uncomplicated; E11.42 Type 2 diabetes mellitus with diabetic polyneuropathy; M19.90 Unspecified osteoarthritis, unspecified site; Z98.890 Other specified postprocedural states; Z59.0 Homelessness; Z56.0 Unemployment, unspecified; Z79.899 Other long term (current) drug therapy; Z79.82 Long term (current) use of aspirin
CPT/HCPCS: 36415; 74176; 80053; 81003; 83690; 85025; 96360; 99284; J7030

== ENCOUNTER 2020-05-23 18:05 | Emergency (ER) | payer MEDICARE, OTHER ==
[~2020-05-23] VITALS: Ht 167.6 cm; Wt 95.5 kg
[~2020-05-23 18:05] MED LIST changes: -BENA10TA74 PO; -CITA20TA28 PO; -CLON-527 PO; -HAL5T PO; -OMEP-50 PO; -TRAZ50TA54 PO
[2020-05-23 19:15] LABS: CLARITY,URINE CLEAR (Clear); COLOR,URINE YELLOW (Yellow); GLUCOSE, URINE NEGATIVE (Neg); KETONES,URINE NEGATIVE (Neg); LEUKOCYTE ESTERASE ,URINE NEGATIVE (Neg); NITRITES, URINE NEGATIVE (Neg); OCCULT BLOOD,URINE NEGATIVE (Neg); PROTEIN,URINE NEGATIVE (Neg); UROBILINOGEN,URINE 0.2 E.U/dL (0.2-1.0)
[2020-05-23 19:16] LABS: BASOPHILS % (AUTO) 0.9 % (0-1); EOSINOPHILS # (AUTO) 0.1 X10'3 (0-0.9); HEMATOCRIT 34.1 % (42.0-52.0); HEMOGLOBIN 11.3 g/dl (14.0-17.9); LYMPHOCYTES # (AUTO) 1.4 X10'3 (1.1-4.8); LYMPHOCYTES % (AUTO) 34.8 % (21-51); MEAN CORPUSCULAR HEMOGLOBIN 28.5 PG (27.0-31.0); MEAN CORPUSCULAR HGB CONC 33.1 g/dL (33.0-36.5); MEAN CORPUSCULAR VOLUME 86.2 FL (78-98); MEAN PLATELET VOLUME 8.2 FL (7.4-10.4); MONOCYTES # (AUTO) 0.5 X10'3 (0-0.9); MONOCYTES % (AUTO) 11.3 % (2-12); NEUTROPHILS # (AUTO) 2.1 X10'3 (1.8-7.7); PLATELET COUNT 284 X10'3 (140-440); RED BLOOD COUNT 3.96 X10'6 (4.70-6.10); RED CELL DISTRIBUTION WIDTH 15.6 % (11.5-14.5); WHITE BLOOD COUNT 4.1 X10'3 (4.5-11.0)
[2020-05-23 19:18] LABS: UA COLLECTION TYPE CLN CATCH MIDSTREAM
[2020-05-23 19:33] LABS: URINE AMPHETAMINE SCREEN NEGATIVE (Neg); URINE BARBITUATE SCREEN NEGATIVE (Neg); URINE BENZODIAZEPINES SCREEN NEGATIVE (Neg); URINE CANNABINOID SCREEN NEGATIVE (Neg); URINE COCAINE SCREEN NEGATIVE (Neg); URINE METHADONE SCREEN NEGATIVE (Neg); URINE OPIATE SCREEN NEGATIVE (Neg); URINE PHENCYCLIDINE SCREEN NEGATIVE (Neg)
[2020-05-23 19:33] LABS: ALANINE AMINOTRANSFERASE 15 U/L (12-78); ALBUMIN 3.5 G/DL (3.4-5.0); ALBUMIN/GLOBULIN RATIO 0.9 (1.1-1.5); ALKALINE PHOSPHATASE 67 IU/L (46-116); ANION GAP 5 (8-16); ASPARTATE AMINO TRANSFERASE 21 U/L (10-37); BILIRUBIN,TOTAL 0.2 MG/DL (0.1-1.0); BLOOD UREA NITROGEN 26 MG/DL (7-18); BUN/CREATININE RATIO 26.5 (5.4-32.0); CALCIUM 8.9 MG/DL (8.5-10.1); CHLORIDE 102 MMOL/L (99-107); CREATININE 0.98 MG/DL (0.60-1.10); GLUCOSE 111 MG/DL (70-104); POTASSIUM 4.1 MMOL/L (3.5-5.1); SODIUM 140 MMOL/L (135-145); TOTAL CARBON DIOXIDE 32.6 MMOL/L (24-32); TOTAL PROTEIN 7.4 G/DL (6.4-8.2); eGFR 77 ML/MIN
[2020-05-23 19:38] LABS: ETHANOL < 0.010 GM/DL (0.0-0.010)
[2020-05-23] MEDS ORDERED: OMEP40CA13 PO (20:33)
[2020-05-23] MEDS ORDERED: ONDA4TAB6 PO (20:33)
--- NOTE | 2020-05-23 20:39 | NUR ---
Packet to [facility]
--- NOTE | 2020-05-23 20:47 | NUR ---
The patient moved to bed 26 and immediately asking for food. Unhappy with food options. Called staff member "vince núñez! Fuck you!" the patient was redirected back to his bed.
--- NOTE | 2020-05-23 21:43 | NUR ---
The patient is a 64 year old male who was reporting auditory hallucinations telling him to jump in front of a train and was brought to [facility] ER on a voluntary basis. The patient was discharged from [facility] yesterday. After being discharged from the [facility] unit he self presented to the ER twice with medical complaints. He currently is on a 1799 pending assessment by [facility].
--- NOTE | 2020-05-23 22:35 | NUR ---
The patient appears to be sleeping.
--- NOTE | 2020-05-23 23:59 | NUR ---
The patient appears to be sleeping
--- NOTE | 2020-05-24 03:09 | NUR ---
The patient appears to be sleeping currently. He was up to use the bathroom once.
--- NOTE | 2020-05-24 03:40 | NUR ---
Assumed care of Pt from BRENDEN Veronica. Pt then up to the desk to ask if he is on a 5150. Updated that he is on a 1799 and will be evaluated in the am. Reports he will need to get in to the [place] by 9 am. Updated that we will be able to [facility] if he [facility]. Pt then back to his bed.
--- NOTE | 2020-05-24 04:50 | NUR ---
Pt appears to be sleeping. Lying on his left side with blankets covering to his chest. RR 14 and unlabored. Sitter and RN within view of Pt aat.
[2020-05-24 05:39] VITALS: BP 124/74
--- NOTE | 2020-05-24 05:55 | NUR ---
PT CALLING OUT FROM HIS BED "NURSE...CAN I HAVE SOME ATIVAN OR CLONAZAPAM FOR MY ANXIETY...I CAN TAKE 300 MG SEROQUEL TOO...I THINK THEY WERE GIVING ME THIS WHEN I WAS UPSTAIRS...I VERY ANXIOUS RIGHT NOW (WAS JUST AWAKENED FROM HIS SLEEP TO TAKE AM VS). I REQUESTED THAT HE GIVEN ME SOME TIME TO LOOK OVER HIS CHART AND TALK WITH THE MD.
[2020-05-24] MEDS ORDERED: QUEtiapine 25mg tablet PO ONE (06:45)
--- NOTE | 2020-05-24 07:00 | NUR ---
pt is asking when he can talk to a doctor
[2020-05-24] MEDS ORDERED: pantoprazole 40mg Tablet.DR PO SCH (07:30)
--- NOTE | 2020-05-24 08:00 | NUR ---
pt is asking for the md to come see him
--- NOTE | 2020-05-24 09:08 | NUR ---
pt is being [facility] to the [facility]
--- NOTE | 2020-05-24 09:14 | NUR ---
BREAKING PRIMARY RN, PT IS AWAITING CLOTHING FOR DISCHARGE,
[2020-05-24] MEDS ORDERED: DIVA-76 PO (23:58)
[2020-05-24] MEDS ORDERED: QUET300T2 PO (23:58)
== END 2020-05-24 09:31 ==
LOC: ER 18:06
DX: F31.9 Bipolar disorder, unspecified (principal); R45.851 Suicidal ideations; F29 Unspecified psychosis not due to a substance or known physiological condition; E11.42 Type 2 diabetes mellitus with diabetic polyneuropathy; I50.9 Heart failure, unspecified; J44.9 Chronic obstructive pulmonary disease, unspecified; M19.90 Unspecified osteoarthritis, unspecified site; F14.90 Cocaine use, unspecified, uncomplicated; Z59.0 Homelessness; Z56.0 Unemployment, unspecified; Z98.890 Other specified postprocedural states; Z88.8 Allergy status to other drugs, medicaments and biological substances; Z79.82 Long term (current) use of aspirin; Z79.899 Other long term (current) drug therapy
CPT/HCPCS: 36415; 80053; 80305; 80320; 81003; 85025; 99284

== ENCOUNTER 2020-05-24 23:00 | Emergency (ER) | payer MEDICARE, OTHER ==
[~2020-05-24] VITALS: Ht 167.6 cm; Wt 95.5 kg
[~2020-05-24 23:00] MED LIST changes: -ASPI-1265 PO; -BENZ1TAB7 PO; -CITA-124 PO; -COR3.125T PO; -DIVA500T9 PO; -FURO40TA4 PO; -GABA300C PO; -HALO5TAB PO; -LISI10TA4 PO; -METF-950 PO; +OMEP40CA13 PO; +ONDA4TAB6 PO; -PANT40TA4 PO; -POTA10TA19 PO; -QUET300T19 PO
[2020-05-24] MEDS ORDERED: divalproex sodium 500mg tablet.DR PO ONE (23:55)
[2020-05-24] MEDS ORDERED: quetiapine 100mg tablet PO ONE (23:55)
[2020-05-24] MEDS ORDERED: QUET300T2 PO (23:58)
[2020-05-24] MEDS ORDERED: DIVA-76 PO (23:58)
[2020-05-25 00:05] VITALS: BP 144/89
== END 2020-05-25 00:41 | disposition home or self-care (01) ==
LOC: ER 23:01
DX: F31.9 Bipolar disorder, unspecified (principal); Z76.0 Encounter for issue of repeat prescription; J44.9 Chronic obstructive pulmonary disease, unspecified; M19.90 Unspecified osteoarthritis, unspecified site; F29 Unspecified psychosis not due to a substance or known physiological condition; I50.9 Heart failure, unspecified; F14.90 Cocaine use, unspecified, uncomplicated; Z59.0 Homelessness; Z56.0 Unemployment, unspecified; Z98.890 Other specified postprocedural states; Z79.899 Other long term (current) drug therapy; Z88.8 Allergy status to other drugs, medicaments and biological substances; Z79.82 Long term (current) use of aspirin
CPT/HCPCS: 99283

== ENCOUNTER 2020-05-26 04:58 | Emergency (ER) | payer MEDICARE, OTHER ==
[~2020-05-26] VITALS: Ht 167.6 cm; Wt 100.9 kg
[~2020-05-26 04:58] MED LIST changes: +DIVA-76 PO; +QUET300T2 PO
[2020-05-26 05:02] VITALS: BP 145/92
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
--- NOTE | 2020-05-26 07:10 | NUR ---
pt changed into green scrubs and room placed in isolation. pt now sleeping in bed no distress noted.
[2020-05-26 07:54] LABS: BASOPHILS % (AUTO) 0.3 % (0-1); EOSINOPHILS # (AUTO) 0.1 X10'3 (0-0.9); EOSINOPHILS % (AUTO) 3.4 % (0-6); HEMATOCRIT 32.9 % (42.0-52.0); HEMOGLOBIN 10.8 g/dl (14.0-17.9); LYMPHOCYTES # (AUTO) 1.4 X10'3 (1.1-4.8); LYMPHOCYTES % (AUTO) 32.9 % (21-51); MEAN CORPUSCULAR HEMOGLOBIN 28.1 PG (27.0-31.0); MEAN CORPUSCULAR HGB CONC 32.7 g/dL (33.0-36.5); MEAN CORPUSCULAR VOLUME 85.9 FL (78-98); MONOCYTES # (AUTO) 0.4 X10'3 (0-0.9); MONOCYTES % (AUTO) 9.6 % (2-12); NEUTROPHILS # (AUTO) 2.2 X10'3 (1.8-7.7); NEUTROPHILS % (AUTO) 53.8 % (42-75); PLATELET COUNT 266 X10'3 (140-440); RED BLOOD COUNT 3.83 X10'6 (4.70-6.10); RED CELL DISTRIBUTION WIDTH 15.6 % (11.5-14.5); WHITE BLOOD COUNT 4.2 X10'3 (4.5-11.0)
[2020-05-26 08:13] LABS: ALANINE AMINOTRANSFERASE 14 U/L (12-78); ALBUMIN 3.3 G/DL (3.4-5.0); ALBUMIN/GLOBULIN RATIO 0.9 (1.1-1.5); ALKALINE PHOSPHATASE 62 IU/L (46-116); ANION GAP 5 (8-16); ASPARTATE AMINO TRANSFERASE 11 U/L (10-37); BILIRUBIN,TOTAL 0.2 MG/DL (0.1-1.0); BLOOD UREA NITROGEN 27 MG/DL (7-18); BUN/CREATININE RATIO 38.6 (5.4-32.0); CALCIUM 8.7 MG/DL (8.5-10.1); CHLORIDE 105 MMOL/L (99-107); GLUCOSE 119 MG/DL (70-104); POTASSIUM 4.1 MMOL/L (3.5-5.1); SODIUM 140 MMOL/L (135-145); TOTAL CARBON DIOXIDE 29.9 MMOL/L (24-32); TOTAL PROTEIN 6.8 G/DL (6.4-8.2); eGFR > 90 ML/MIN
[2020-05-26 08:21] LABS: ETHANOL < 0.010 GM/DL (0.0-0.010)
--- NOTE | 2020-05-26 08:45 | NUR ---
SPOKE WITH MD BRAVO TO ADD MEDICAL CLEARANCE. STATED WILL RELAY INFO TO .
[2020-05-26 08:52] LABS: CLARITY,URINE CLEAR (Clear); COLOR,URINE YELLOW (Yellow); GLUCOSE, URINE NEGATIVE (Neg); KETONES,URINE NEGATIVE (Neg); LEUKOCYTE ESTERASE ,URINE NEGATIVE (Neg); NITRITES, URINE NEGATIVE (Neg); OCCULT BLOOD,URINE NEGATIVE (Neg); PROTEIN,URINE NEGATIVE (Neg); UROBILINOGEN,URINE 0.2 E.U/dL (0.2-1.0)
[2020-05-26 08:54] LABS: UA COLLECTION TYPE VOIDED
[2020-05-26 09:05] LABS: URINE AMPHETAMINE SCREEN NEGATIVE (Neg); URINE BARBITUATE SCREEN NEGATIVE (Neg); URINE BENZODIAZEPINES SCREEN NEGATIVE (Neg); URINE CANNABINOID SCREEN NEGATIVE (Neg); URINE COCAINE SCREEN NEGATIVE (Neg); URINE METHADONE SCREEN NEGATIVE (Neg); URINE OPIATE SCREEN NEGATIVE (Neg); URINE PHENCYCLIDINE SCREEN NEGATIVE (Neg)
--- NOTE | 2020-05-26 09:15 | NUR ---
SPOKE WITH MD ABOUT ADDING AN H&P FOR PT AND MEDICAL CLEARANCE.
[2020-05-26] MEDS ORDERED: albuterol 2.5 MG/3 ML nebule NEB ONE (09:45)
--- NOTE | 2020-05-26 10:31 | NUR ---
SPOKE WITH MD ABOUT ADDING ON AN H&P AND MEDICAL CLEARANCE TO BE ABLE TO SEND PACKET TO [facility]. VERBAL MEDICALLY CLEAR BUT RELAYED WE NEED IT TO SAY IN THE H&P
--- NOTE | 2020-05-26 11:30 | NUR ---
NOTIFIED PT WILL NOT BE ON A MENTAL HEALTH HOLD, DR CONTRERAS CANCELED THE 1798. PT BELONGINGS GIVEN BACK TO PT. STATED WORKING ON DC PAPERWORK NOW.
== END 2020-05-26 11:43 | disposition home or self-care (01) ==
LOC: ER 04:59
DX: R06.2 Wheezing (principal); F31.9 Bipolar disorder, unspecified; E11.42 Type 2 diabetes mellitus with diabetic polyneuropathy; I50.9 Heart failure, unspecified; J44.9 Chronic obstructive pulmonary disease, unspecified; M19.90 Unspecified osteoarthritis, unspecified site; F17.200 Nicotine dependence, unspecified, uncomplicated; F14.90 Cocaine use, unspecified, uncomplicated; Z98.890 Other specified postprocedural states; Z72.89 Other problems related to lifestyle; Z56.0 Unemployment, unspecified; Z88.8 Allergy status to other drugs, medicaments and biological substances; Z79.899 Other long term (current) drug therapy
CPT/HCPCS: 36415; 80053; 80305; 80320; 81003; 84443; 85025; 94640; 94760; 99283; 99284

== ENCOUNTER 2020-05-31 19:24 | Emergency (ER) | payer MEDICARE, OTHER | END 2020-05-31 20:35 | disposition left against medical advice (07) | LOC: ER 19:24 | DX: T67.5XXA Heat exhaustion, unspecified, initial encounter (principal); Z53.21 Procedure and treatment not carried out due to patient leaving prior to being seen by health care provider ==

== ENCOUNTER 2020-05-31 21:26 | Emergency (ER) | payer MEDICARE, OTHER ==
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
== END 2020-05-31 23:55 | disposition left against medical advice (07) ==
LOC: ER 21:27
DX: Z00.8 Encounter for other general examination (principal); Z53.21 Procedure and treatment not carried out due to patient leaving prior to being seen by health care provider